=== PATIENT | male | born 1995 | race Caucasian/White ===

== ENCOUNTER 2022-01-29 01:07 | Emergency (ER) | payer MEDICAID, OTHER ==
[~2022-01-29] VITALS: Ht 175.3 cm; Wt 65.8 kg
--- NOTE | 2022-01-29 01:15 | NUR ---
BIBS C/O SUDDEN ONSET OF SOB. O2 SAT AT TRIAGE 100% RA. PATIENT ALERT AND ORIENTED X3. AMBULATORY SATTING AT 100% RA, IN BED 10 ON MONITOR AWAITING MD VIERA.
[2022-01-29 01:34] VITALS: BP 137/70
--- NOTE | 2022-01-29 01:34 | NUR ---
Patient discharged to home in stable condition. Written and verbal after care instructions given. Patient verbalizes understanding of instruction.
== END 2022-01-29 01:35 | disposition home or self-care (01) ==
LOC: ER 01:10
DX: F41.0 Panic disorder [episodic paroxysmal anxiety] (principal); Z60.2 Problems related to living alone